=== PATIENT | female | born 1950 | race Hispanic/Latino ===

== ENCOUNTER 2017-03-12 07:54 | Day surgery (SDC) | payer MEDICARE ==
[2017-03-12] MEDS ORDERED: Lactated Ringer's 500 ML IV ONE (08:55)
[2017-03-12 09:01] VITALS: BMI 34.5
[2017-03-12] MEDS ORDERED: Propofol 10 mg/ml Inj (20 ML) ONE (09:53)
[2017-03-12 10:13] VITALS: RESP 16
[2017-03-12 10:45] VITALS: BP 136/65; PULSE 75; TEMP 97.5; O2SAT 100
== END 2017-03-12 11:51 | disposition home or self-care (01) ==
LOC: H.ENDO 07:54
PROVIDERS: ATTEND Internal Medicine Gastroenterology
DX: K57.30 Diverticulosis of large intestine without perforation or abscess without bleeding (principal); K64.8 Other hemorrhoids; I10 Essential (primary) hypertension; E78.5 Hyperlipidemia, unspecified; E11.9 Type 2 diabetes mellitus without complications; Z80.49 Family history of malignant neoplasm of other genital organs
CPT/HCPCS: 45378; J2704; J7120